=== PATIENT | female | born 1960 | race American Indian/Alaskan Native ===

== ENCOUNTER 2016-12-02 08:00 | Day surgery (SDC) | payer BC ==
[~2016-12-02 08:00] MED LIST: MARCAINE 0.25% INFILTRATI ONE; XYLOCAINE 1% 20 mL ONE
--- NOTE | 2016-12-02 08:37 | Anesthesia Consultation ---
Anesthesia Consult and Med Hx Date of service: 12/02/16 - Airway Anesthetic Teeth Evaluation: Good ROM Head & Neck: Adequate Mental/Hyoid Distance: Inadequate Mallampati Class: Class III Intubation Access Assessment: Possibly Difficult - Pulmonary Exam CTA: Yes - Cardiac Exam Cardiac Exam: RRR - Pre-Operative Health Status ASA Pre-Surgery Classification: ASA3 Proposed Anesthetic Plan: General - Pulmonary Hx Smoking: No Hx Respiratory Symptoms: Yes (prior tracheostomy and several esophageal surgeries) Hx Sleep Apnea: No (high risk) - Cardiovascular System Hx Hypertension: Yes Hx Peripheral Vascular Disease: No - Central Nervous System Hx Neuromuscular Disorder: No Hx Psychiatric Problems: No - Gastrointestinal Hx Gastroesophageal Reflux Disease: Yes - Endocrine Hx Renal Disease: Yes (placed on dialysis s/p 2007 knee surgery - resolved with 100% function) Hx Insulin Dependent Diabetes: No - Hematic Hx Anemia: No Hx Sickle Cell Disease: No - Other Systems Hx Alcohol Use: Yes (occasionally) Hx Substance Use: No Hx Cancer: No Hx Obesity: Yes - Additional Comments Anesthesia Medical History Comments: Patient had knee surgery in 2007. s/p surgery patient states her esophagus was torn in two places due to intubation difficulty resulting in several corrective surgeries with tracheostomy and temporary dialysis. Extremely anxious and concerned with anesthesia
--- NOTE | 2016-12-02 08:38 | Anesthesia Day of Surgery ---
Anesthesia Day of Surgery - Day of Surgery Patient Examined: Yes Patient H&P Reviewed: Yes Patient is NPO: Yes Beta Blockers: Yes
[2016-12-02] MEDS ORDERED: NACL 0.9% 1000 ML 1,000 ML IV SCH (08:39)
[2016-12-02] MEDS ORDERED: VERSED IV NR (08:40)
[2016-12-02] MEDS ORDERED: PEPCID PO NR (09:00)
[2016-12-02] MEDS ORDERED: NEO SYNEPHRINE/NS Syringe(OR USE) IV ONE (09:00)
[2016-12-02] MEDS ORDERED: XYLOCAINE 2% INFILTRATI ONE (09:24)
--- NOTE | 2016-12-02 09:54 | Procedure Note ---
Date of procedure: 12/02/16 Pre-op diagnosis: lt. breast lesions Post-op diagnosis: same Procedure: needle loc x 2 Findings: n/a Anesthesia: local Surgeon: KUSHAL CORONA Estimated blood loss: none Pathology: none Condition: stable Disposition: same day
[2016-12-02] MEDS ORDERED: ANCEF/STERILE WATER 2 GM/20 ML IV NR (10:00)
--- NOTE | 2016-12-02 10:01 | Mammography Report ---
Left breast needle localization x2: The patient presents with 2 markers in the lateral left breast. Grid mammographic technique was utilized. The skin was cleansed and 1% lidocaine used for local anesthesia at both locations. A 5 cm Alba needle was placed at both locations with position confirmation using mammography. Wires were then introduced through each needle with removal of the needles and additional mammographic confirmation of wire positioning. No technical or patient complication encountered.
[2016-12-02] MEDS ORDERED: DIPRIVAN 10 MG/ML IV ONE (10:15)
[2016-12-02] MEDS ORDERED: DILAUDID ONE (10:15)
[2016-12-02] MEDS ORDERED: ZOFRAN ONE (10:15)
[2016-12-02] MEDS ORDERED: XYLOCAINE MPF 2% ONE (10:15)
[2016-12-02] MEDS ORDERED: DECADRON ONE (10:15)
[2016-12-02] MEDS ORDERED: MARCAINE 0.25% INFILTRATI ONE (11:04)
[2016-12-02] MEDS ORDERED: WATER FOR IRRIG STERILE IR ONE (11:04)
[2016-12-02] MEDS ORDERED: XYLOCAINE 1% 20 mL INFILTRATI ONE (11:04)
--- NOTE | 2016-12-02 12:58 | Short Stay Summary ---
Short Stay Documentation Date of service: 12/02/16 - History H&P: obtained from office - Allergies and Medications Current Medications: Allergies No Known Allergies Allergy (Verified 11/24/16 12:02) Home Medications Medication Instructions Recorded Confirmed Last Taken Type Hydrochlorothiazide [Hctz] 25 mg PO QDAY 03/31/13 12/02/16 12/01/16 History Metoprolol [Lopressor] 25 mg PO BID 03/31/13 12/02/16 12/02/16 History Omeprazole [Prilosec] 40 mg PO QDAY 03/31/13 12/02/16 12/02/16 History Levocetirizine Dihydrochloride 5 mg PO DAILY 11/24/16 12/02/16 12/01/16 History Zolpidem Tartrate [Zolpidem 10 mg PO HS 11/24/16 12/02/16 12/01/16 History Tartrate] HYDROcodone/APAP 5-325 [[place] 1 each PO Q6HR PRN #30 tablet 12/02/16 Unknown Rx 5/325] Active Medications Sodium Chloride (Nacl 0.9% 1000 Ml) 1,000 mls @ 100 mls/hr IV DIRECT MAO Last Admin: 12/02/16 08:50 Dose: 100 mls/hr Midazolam HCl (Versed) 2 mg IV PREOP NR Stop: 12/02/16 23:59 Last Admin: 12/02/16 08:56 Dose: 2 mg - Brief post op/procedure progress note Date of procedure: 12/02/16 Pre-op diagnosis: Left breast ADH of the upper outer/inner quadrants Post-op diagnosis: same Procedure: Complex left needle localization excisional biopsy Anesthesia: GETA Findings: Wire and clips present within radiograph specimen Surgeon: ADRIANNA BETANCOURT Midwife Practitioner: CHEMO MURO Estimated blood loss: minimal Pathology: list (left breast excisional biopsy) Specimen disposition: to lab Condition: stable - Disposition Condition at discharge: Good Disposition: DC-01 TO HOME OR SELFCARE Short Stay Discharge Plan Activity: other (no heavy lifting) Diet: regular Wound: other (keep incision clean and dry; may shower in 24 hours; no baths, pools or lakes) Follow up with: LARON REHMAN MD [Primary Care Provider] - 7 Days ADRIANNA BETANCOURT MD [Staff Physician] - 7 Days Prescriptions: HYDROcodone/APAP 5-325 [[place] 5/325] 1 each PO Q6HR PRN #30 tablet PRN Reason: Pain
--- NOTE | 2016-12-02 13:01 | Operative Report ---
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 Recommendations were to proceed with an excisional biopsy to rule out malignancy. Patient wished to proceed with the above procedure. Procedure in detail. Radiology placed 2 wires to localize area of concern. The patient was taken to the operating room and she was laid supine. General anesthesia was administered. The left breast was prepped and draped in the normal sterile operative fashion. The wires were identified. Timeout was performed. A lateral breast incision was made with 15 blade and dissection taken down to the subcutaneous tissues. The wires were removed from the skin. First began raising of the superior flap followed by raising of the inferior flap, then medial flap and lateral flap taken down posterioly to the pectoralis muslce. Area of concern was appropriately removed with the aid of the Bovie cautery. The wire was not encountered. Radiograph specimen with clips and wire present. Hemostasis was obtained. The subcutaneous tissues were approximated and closed using interrupted 3-0 Vicryl. The skin brought together and closed using a running 4-0 Monocryl followed by skin affix. She tolerated surgery very well and was awaken from anesthesia without any complications and transported to PACU in good condition.
--- NOTE | 2016-12-02 13:15 | Post Anesthesia Evaluation ---
- Post Anesthesia Evaluation Patient Participated: Yes Airway Patent: Yes Stable Respiratory Function: Yes Temp > 96.8F: Yes Pain Manageable: Yes Adequeate Hydration: Yes Anesthesia Complications: No
--- NOTE | 2016-12-02 13:44 | Mammography Report ---
Operative specimen mammogram: A single tissue specimen is submitted that contains both targeted markers and both localizing wires.
[2016-12-02] MEDS ORDERED: NORCO 5/325 PO PRN (14:00)
[2016-12-02 14:17] VITALS: BP 114/80
== END 2016-12-02 14:27 | disposition home or self-care (01) ==
LOC: OR 08:00
PROVIDERS: ATTEND Surgery
DX: D24.2 Benign neoplasm of left breast (principal); N60.92 Unspecified benign mammary dysplasia of left breast; E66.9 Obesity, unspecified; I10 Essential (primary) hypertension; K21.9 Gastro-esophageal reflux disease without esophagitis; Z72.89 Other problems related to lifestyle; Z68.34 Body mass index [BMI] 34.0-34.9, adult
CPT/HCPCS: 19125; 19281; 19282; 76098; 88307; J0690; J1100; J1170; J2250; J2370; J2405; J2704; J7030

== ENCOUNTER 2017-02-12 14:11 | Outpatient (CLI) | payer BC ==
--- NOTE | 2017-02-12 16:38 | Magnetic Resonance Report ---
BILATERAL BREAST MRI WITHOUT AND WITH CONTRAST: 02/12/17 14:11:00 CLINICAL: Left breast ADH status post surgical excision. COMPARISON:08/31/16 bilateral mammogram.. TECHNIQUE: Axial 1.0-mm T1 without, axial high resolution 2.0-mm T2 and axial 1.0-mm dynamic Vibrant high-resolution postcontrast T1 fat saturation sequences on a 1.5 Anastasiia magnet. The examination was performed with an 8 channel dedicated Sentinelle breast coil. Post processing with CAD and subtraction was performed on an [employer] workstation. 20 cc of Multihance was injected without incident via a left hand vein 22-gauge INT for the contrast portion of the exam. Consent was obtained prior to the administration of the contrast. FINDINGS: Right: Mild background parenchymal enhancement. No mass or suspicious enhancement. Several small outer benign intraparenchymal lymph nodes. No suspicious lymph nodes. Left: Mild background parenchymal enhancement. Postsurgical seroma and scar formation in the upper outer quadrant extending to the chest wall. The postoperative seroma measures 3.9 x 2.4 x 1.4 cm. Benign pattern of enhancement at the surgical site. No mass or suspicious enhancement. No suspicious left axillary or left internal mammary lymph nodes. IMPRESSION: Benign postsurgical changes with a 3.9 cm seroma of the left breast. No suspicious finding in either breast. No suspicious lymph nodes. Recommend routine mammographic screening. BI-RADS 2 -- Benign
== END 2017-02-12 14:12 | disposition home or self-care (01) ==
LOC: SPVIMAG 14:11
PROVIDERS: ATTEND Surgery
DX: N60.82 Other benign mammary dysplasias of left breast (principal); N64.89 Other specified disorders of breast; I10 Essential (primary) hypertension; K21.9 Gastro-esophageal reflux disease without esophagitis
CPT/HCPCS: A9577; C8908; 77059

== ENCOUNTER 2018-02-21 13:44 | Outpatient (CLI) | payer BC ==
--- NOTE | 2018-02-22 11:51 | Magnetic Resonance Report ---
BILATERAL BREAST MRI WITHOUT AND WITH CONTRAST: 02/21/18 13:44:00 CLINICAL: History of left breast ADH status post surgical excision. COMPARISON:02/12/17. TECHNIQUE: Axial 1.0-mm T1 without, axial high resolution 2.0-mm T2 and axial 1.0-mm dynamic Vibrant high-resolution postcontrast T1 fat saturation sequences on a 1.5 Anastasiia magnet. The examination was performed with an 8 channel dedicated Sentinelle breast coil. Post processing with CAD and subtraction was performed on an [employer] workstation. 20 cc of Multihance was injected without incident for the contrast portion of the exam. Consent was obtained prior to the administration of the contrast. FINDINGS: Right: Minimal background parenchymal enhancement. No mass or suspicious enhancement. No suspicious lymph nodes. Left: Minimal background parenchymal enhancement. No mass or suspicious enhancement. Upper outer postsurgical benign scar. The scar has retracted and the previously described postop seroma has resolved. No mass or suspicious enhancement. No suspicious lymph nodes. IMPRESSION: Negative study status post left benign surgical excision. BI-RADS 2 - - Benign
== END 2018-02-21 13:45 | disposition home or self-care (01) ==
LOC: SPVIMAG 13:44
PROVIDERS: ATTEND Surgery
DX: N60.82 Other benign mammary dysplasias of left breast (principal); I10 Essential (primary) hypertension; K21.9 Gastro-esophageal reflux disease without esophagitis; Z72.89 Other problems related to lifestyle
CPT/HCPCS: A9577; C8908; 77049

== ENCOUNTER 2018-08-30 13:22 | Outpatient (CLI) | payer BC ==
--- NOTE | 2018-08-30 14:35 | Mammography Report ---
BILATERAL DIGITAL SCREENING MAMMOGRAM WITH CAD INDICATION: Routine screening mammography. History of left ADH and benign left surgical excision. TECHNIQUE: Digital bilateral 2D mammography was obtained in the craniocaudal and mediolateral obliq ue projections. This examination was interpreted with the benefit of Computer-Aided Detection analysi s. COMPARISON: 08/26/2017 FINDINGS: Breast Density: There are scattered areas of fibroglandular density. No mass, architectural distortion or suspicious calcifications. Benign left upper outer postsurgical scar. IMPRESSION:No mammographic evidence of malignancy. BI-RADS Category 2: Benign. No mammographic evidence of malignancy. Recommend routine screening ma mmography in one year. A "normal" or negative report should not discourage follow up or biopsy of a clinically significant f inding. A written summary of these findings will be mailed to the patient. The patient will be entered into a mammography reporting system which will generate a reminder letter for the patient's next appointmen t at the appropriate interval. The [employer] [place] [employer] recommends yearly mammograms starting at age 40 and continuing as l peri as a woman is in good health. Breast MRI is recommended for women with an approximate 20-25% or greater lifetime risk of breast cancer, including women with a strong family history of breast or ova devin cancer or who have been treated for Hodgkin's disease. Signer Name: Gordon Shanks MD Signed: 08/30/2018 2:30 PM Workstation Name: [id number]
== END 2018-08-30 13:23 | disposition home or self-care (01) ==
LOC: SPVWC 13:22
PROVIDERS: ATTEND Surgery
DX: Z12.31 Encounter for screening mammogram for malignant neoplasm of breast (principal); I10 Essential (primary) hypertension; K21.9 Gastro-esophageal reflux disease without esophagitis; E66.9 Obesity, unspecified
CPT/HCPCS: 77067

== ENCOUNTER 2019-03-15 14:59 | Outpatient (CLI) | payer BC ==
--- NOTE | 2019-03-16 10:51 | Magnetic Resonance Report ---
BILATERAL BREAST MR WITHOUT AND WITH GADOLINIUM INDICATION: History of left breast ADH and surgical excision. COMPARISONS: 02/21/2018 TECHNIQUE: Axial 1.0 mm T1 without, axial high-resolution 2.0 mm T2 and axial 1.0 mm dynamic vibrant high-resolution postcontrast T1 fat saturation sequences on a 1.5 Anastasiia magnet. The examination was p erformed with an 8-channel dedicated Sentinelle breast coil. Post-processing with CAD and subtraction was performed on an [employer] workstation. 19.0 cc of MultiHance was injected without incident for the c ontrast portion of the exam. Consent was obtained prior to the administration of the contrast. FINDINGS: RIGHT BREAST: Moderate background parenchymal enhancement. No mass or suspicious enhancement. No susp icious lymph nodes. LEFT BREAST: Moderate background parenchymal enhancement. No mass or suspicious enhancement. Benign u pper outer postsurgical scar is less prominent than on the last exam. No suspicious lymph nodes. IMPRESSION: Negative study with no suspicious finding. Recommend routine mammographic screening. BI-RADS Category 2: Benign Signer Name: Gordon Shanks MD Signed: 03/16/2019 10:47 AM Workstation Name: [id number]
== END 2019-03-15 15:00 | disposition home or self-care (01) ==
LOC: SPVIMAG 14:59
PROVIDERS: ATTEND Surgery
DX: N60.82 Other benign mammary dysplasias of left breast (principal); Z98.890 Other specified postprocedural states
CPT/HCPCS: A9577; C8908; 77049

== ENCOUNTER 2020-09-05 14:05 | Outpatient (CLI) | payer BC ==
--- NOTE | 2020-09-06 10:46 | Mammography Report ---
DIGITAL SCREENING MAMMOGRAM WITH TOMOSYNTHESIS WITH CAD, 09/05/2020 CLINICAL INFORMATION / INDICATION: Routine Screening Mammography. TECHNIQUE: Digital bilateral 2D and 3D mammography with tomosynthesis was obtained in the craniocaud al and mediolateral oblique projections. Computer-Aided Detection (CAD) analysis was used for interp retation of this study. COMPARISON: Prior mammograms 09/05/2019 and 08/30/2018 FINDINGS: Breast Density: There are scattered areas of fibroglandular density. No dominant mass, suspicious calcifications, or architectural distortion in either breast. There is stable benign postsurgical change seen in the left breast and stable small nodular densities seen in both breasts. There has been no significant change compared with the prior examinations. IMPRESSION: No mammographic evidence of malignancy. Follow up recommendation: Routine yearly BI-RADS Category 2: Benign. A "normal" or negative report should not discourage follow up or biopsy of a clinically significant f inding. A written summary of these findings will be mailed to the patient. The patient will be entered into a mammography reporting system which will generate a reminder letter for the patient's next appointmen t at the appropriate interval. The [employer] recommends yearly mammograms starting at age 40 and continuing as l peri as a woman is in good health. Breast MRI is recommended for women with an approximate 20-25% or greater lifetime risk of breast cancer, including women with a strong family history of breast or ova devin cancer or who have been treated for Hodgkin's disease. Signer Name: Cher Gonzalez MD Signed: 09/06/2020 10:42 AM Workstation Name: [email or web address]
== END 2020-09-05 14:06 | disposition home or self-care (01) ==
LOC: SPVWC 14:05
PROVIDERS: ATTEND Surgery
DX: Z12.31 Encounter for screening mammogram for malignant neoplasm of breast (principal); N64.89 Other specified disorders of breast
CPT/HCPCS: 77063; 77067

== ENCOUNTER 2021-09-09 08:11 | Outpatient (CLI) | payer BC ==
--- NOTE | 2021-09-10 17:01 | Mammography Report ---
DIGITAL SCREENING MAMMOGRAM WITH CAD, 09/09/2021 CLINICAL INFORMATION / INDICATION: Routine screening mammography. TECHNIQUE: Digital bilateral 2D mammography was obtained in the craniocaudal and mediolateral obliqu e projections. This examination was interpreted with the benefit of Computer-Aided Detection analysis . COMPARISON: 09/05/2019 FINDINGS: Breast Density: There are scattered areas of fibroglandular density. No dominant mass, suspicious calcifications, or architectural distortion in either breast. Stable nodularity. No significant interval change. IMPRESSION: No mammographic evidence of malignancy. Follow up recommendation: Routine yearly screening mammogram. BI-RADS Category 2: BENIGN. A "normal" or negative report should not discourage follow up or biopsy of a clinically significant f inding. A written summary of these findings will be mailed to the patient. The patient will be entered into a mammography reporting system which will generate a reminder letter for the patient's next appointmen t at the appropriate interval. The [employer] recommends yearly mammograms starting at age 40 and continuing as l peri as a woman is in good health. Breast MRI is recommended for women with an approximate 20-25% or greater lifetime risk of breast cancer, including women with a strong family history of breast or ova devin cancer or who have been treated for Hodgkin's disease. Signer Name: Kim Rodriguez MD Signed: 09/10/2021 4:57 PM Workstation Name: [email or web address]
== END 2021-09-09 08:12 | disposition home or self-care (01) ==
LOC: SPVWC 08:11
PROVIDERS: ATTEND Surgery
DX: Z12.31 Encounter for screening mammogram for malignant neoplasm of breast (principal)
CPT/HCPCS: 77067